=== PATIENT | female | born 1945 | race Caucasian/White ===

== ENCOUNTER → 2016-07-11 | Outpatient (CLI) | payer MEDICARE, BC ==
--- NOTE | 2016-07-12 16:17 | XR ---
EXAMINATION TYPE: XR chest 2V DATE OF EXAM: 07/11/2016 1:30 PM COMPARISON: NONE HISTORY: Cough TECHNIQUE: Frontal and lateral views of the chest are obtained. FINDINGS: There is no focal air space opacity, pleural effusion, or pneumothorax seen. The cardiac silhouette size is borderline enlarged although patient is rotated. Retrocardiac density with central lucency compatible with hiatal hernia. There may be spinal curvature, patient is rotated. There is b ronchial wall thickening. The osseous structures are intact. IMPRESSION: Correlate for bronchitis. Hiatal hernia. Borderline cardiac size.
== END | disposition home or self-care (01) ==
LOC: RADXRYALE 13:20
PROVIDERS: ATTEND Internal Medicine
DX: K44.9 Diaphragmatic hernia without obstruction or gangrene (principal); R05 Cough
CPT/HCPCS: 71020

== ENCOUNTER → 2016-11-08 | Outpatient (CLI) | payer MEDICARE, BC ==
--- NOTE | 2016-11-09 14:22 | MM ---
Reason for exam: screening (asymptomatic). Last mammogram was performed 1 year and 1 month ago. History: Patient is postmenopausal. Family history of breast cancer in sister at age 40 and breast cancer in mother at age 50. Benign stereotactic core biopsy of the left breast, February 08, 2004. Physical Findings: A clinical breast exam by your physician is recommended on an annual basis and results should be correlated with mammographic findings. MG 3D Screening Mammo W/Cad Bilateral CC and MLO view(s) were taken. Prior study comparison: October 20, 2015, bilateral MG 3d screening mammo w/cad. October 12, 2014, bilateral MG screening mammo w CAD. April 07, 2014, left breast MG diagnostic mammo LT w CAD. There are scattered fibroglandular densities. There is chronic nodularity bilaterally. No significant changes when compared with prior studies. ASSESSMENT: Benign, BI-RAD 2 RECOMMENDATION: Routine screening mammogram of both breasts in 1 year.
== END | disposition home or self-care (01) ==
LOC: RADMAMWWP 07:59
PROVIDERS: ATTEND Internal Medicine
DX: Z12.31 Encounter for screening mammogram for malignant neoplasm of breast (principal)
CPT/HCPCS: 77063; G0202

== ENCOUNTER → 2017-12-18 | Outpatient (CLI) | payer MEDICARE, BC ==
--- NOTE | 2017-12-20 11:53 | MM ---
Reason for exam: screening (asymptomatic). Last mammogram was performed 1 year and 1 month ago. History: Patient is postmenopausal. Family history of breast cancer in sister at age 40 and breast cancer in mother at age 50. Benign stereotactic core biopsy of the left breast, February 08, 2004. Physical Findings: A clinical breast exam by your physician is recommended on an annual basis and results should be correlated with mammographic findings. MG 3D Screening Mammo W/Cad Bilateral CC and MLO view(s) were taken. Prior study comparison: November 08, 2016, bilateral MG 3d screening mammo w/cad. October 20, 2015, bilateral MG 3d screening mammo w/cad. There are scattered fibroglandular densities. Benign appearing round bilateral calcifications. Previous mammotome biopsy in the left breast. There is no discrete abnormality. ASSESSMENT: Benign, BI-RAD 2 RECOMMENDATION: Routine screening mammogram of both breasts in 1 year.
== END | disposition home or self-care (01) ==
LOC: RADMAMWWP 15:21
PROVIDERS: ATTEND Internal Medicine
DX: Z12.31 Encounter for screening mammogram for malignant neoplasm of breast (principal)
CPT/HCPCS: 77063; 77067

== ENCOUNTER → 2018-09-06 | Outpatient (CLI) | payer MEDICARE, BC ==
--- NOTE | 2018-09-06 15:26 | US ---
EXAMINATION TYPE: US abdomen complete DATE OF EXAM: 09/06/2018 COMPARISON: NONE CLINICAL HISTORY: R10.11 Right upper quadrant abdominal pain. Gassy, bloating x 1 month, occasional b ack pain. EXAM MEASUREMENTS: Liver Length: 17.0 cm Gallbladder Wall: 0.3 cm CBD: 0.4 cm Spleen: cm Right Kidney: 9.4 x 4.5 x 4.5 cm Left Kidney: 9.1 x 5.3 x 4.8 cm Difficult and limited study due to patient body habitus and overlying bowel gas Pancreas: obscured by overlying midline bowel gas Liver: wnl Gallbladder: mobile echogenic foci Evidence for sonographic Ordoñez's sign: no CBD: visualized portions wnl, limited by overlying bowel gas Spleen: obscured by overlying bowel gas Right Kidney: wnl Left Kidney: wnl Upper IVC: wnl Abd Aorta: visualized portions wnl, limited by overlying midline bowel gas IMPRESSION: 1. There is some limitation due to bowel gas this examination. 2. Cholelithiasis.
== END ==
LOC: RADUSWWP 08:01
PROVIDERS: ATTEND Internal Medicine
DX: K80.20 Calculus of gallbladder without cholecystitis without obstruction (principal)
CPT/HCPCS: 76700

== ENCOUNTER → 2019-01-13 | Outpatient (CLI) | payer MEDICARE, BC ==
--- NOTE | 2019-01-15 09:01 | MM ---
Reason for exam: screening (asymptomatic). Last mammogram was performed 1 year and 1 month ago. History: Patient is postmenopausal. Family history of breast cancer in sister at age 40 and breast cancer in mother at age 50. Benign stereotactic core biopsy of the left breast, February 08, 2004. Physical Findings: A clinical breast exam by your physician is recommended on an annual basis and results should be correlated with mammographic findings. MG 3D Screening Mammo W/Cad Bilateral CC and MLO view(s) were taken. Prior study comparison: December 18, 2017, bilateral MG 3d screening mammo w/cad. November 08, 2016, bilateral MG 3d screening mammo w/cad. There are scattered fibroglandular densities. Previous mammotome biopsy in the left breast. There is chronic nodularity bilaterally. No significant changes when compared with prior studies. ASSESSMENT: Benign, BI-RAD 2 RECOMMENDATION: Routine screening mammogram of both breasts in 1 year.
== END | disposition home or self-care (01) ==
LOC: RADMAMWWP 12:56
PROVIDERS: ATTEND Internal Medicine
DX: Z12.31 Encounter for screening mammogram for malignant neoplasm of breast (principal)
CPT/HCPCS: 77063; 77067

== ENCOUNTER 2019-06-15 19:32 | Inpatient (IN) | payer MEDICARE, OTHER ==
[2019-06-15] MEDS ORDERED: CEPHALEXIN 500 MG CAP PO STA (19:35)
[2019-06-15] MEDS ORDERED: HYDROcodone/APAP 5-325MG 1 EACH TAB PO STA (19:35)
[2019-06-15] MEDS ORDERED: LIDOCAINE 1%-EPI 1:100,000 20 ML VIAL SQ STA (19:50)
--- NOTE | 2019-06-15 20:15 | XR ---
EXAMINATION TYPE: XR tibia fibula RT DATE OF EXAM: 06/15/2019 CLINICAL HISTORY: Laceration TECHNIQUE: Two views of the right leg are obtained. COMPARISON: None. FINDINGS: No fracture. Total knee arthroplasty is noted. There are degenerative changes throughout the foot whi ch are incompletely evaluated. Soft tissue defect along the medial aspect of the left lower leg. No radiopaque foreign body. No unde rlying osseous abnormality. Arterial vascular calcifications. IMPRESSION: 1. No fracture. 2. Laceration along the medial lower leg without radiopaque foreign body.
[2019-06-15] MEDS ORDERED: DIPH,PERTUS(ACELL)TETVAC-LF 0.5 ML VIAL IM ONE (20:44)
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
[2019-06-15 21:48] LABS: Basophils # (A) 0.1 k/uL (0-0.2); Basophils % (A) 0 %; Eosinophils # (A) 0.1 k/uL (0-0.7); Eosinophils % (A) 1 %; HCT 44.2 % (34.0-46.0); HGB 14.5 gm/dL (11.4-16.0); Lymphocytes % (A) 6 %; MCHC 32.8 g/dL (31.0-37.0); MCV 85.6 fL (80.0-100.0); Mean Platelet Volume 7.8; Monocytes # (A) 0.5 k/uL (0-1.0); Monocytes % (A) 3 %; Neutrophils # (A) 14.3 k/uL (1.3-7.7); Neutrophils % (A) 89 %; Platelet Count 365 k/uL (150-450); RBC 5.16 m/uL (3.80-5.40); RDW 13.5 % (11.5-15.5)
[2019-06-15 21:53] LABS: Calcium 9.2 mg/dL (8.4-10.2); Potassium 4.3 mmol/L (3.5-5.1)
[2019-06-15 21:59] LABS: INR 0.9 (<1.2); Partial Thromboplastin Time 22.5 sec (22.0-30.0); Prothrombin Time 9.6 sec (9.0-12.0)
[2019-06-15] MEDS ORDERED: NALOXONE 0.4 MG/ML 1 ML VIAL IV PRN (22:17)
[2019-06-15] MEDS ORDERED: IBUPROFEN 400 MG TAB PO PRN (22:17)
[2019-06-16] MEDS: ACETAMINOPHEN TAB 325 MG TAB PO PRN ×2 (06:24→13:19)
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
[2019-06-16] MEDS: SODIUM CHLORIDE 0.9% 1,000 ML IV SCH (13:19)
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
--- NOTE | 2019-06-16 17:36 | P.PN ---
Subjective Progress Note Date: 06/16/19 Patient doing well, pain well controlled Objective - Vital Signs Vital signs: Vital Signs Temp 98.6 F 06/16/19 14:57 Pulse 64 06/16/19 16:10 Resp 15 06/16/19 16:10 BP 137/76 06/16/19 14:57 Pulse Ox 97 06/16/19 14:57 Intake & Output 06/15/19 06/16/19 06/16/19 18:59 06:59 18:59 Intake Total 225 Balance 225 Weight 70.307 kg Intake: Intake, IV Titration 225 Amount Sodium Chloride 0.9% 1, 225 000 ml @ 75 mls/hr IV . [id number] [facility] Rx#:[id number] - Constitutional General appearance: Present: cooperative - Cardiovascular Rhythm: regular - Integumentary Integumentary Comment(s): wound vac in place. minimal erythema - Neurologic Neurologic Comment(s): motor and sensation intact, distal pulses palpable - Psychiatric Psychiatric: Present: A&O x's 3 - Labs CBC & Chem 7: 06/15/19 21:14 06/15/19 21:14 Labs: Abnormal Lab Results - Last 24 Hours (Table) 06/15/19 06/15/19 Range/Units 21:14 21:14 WBC 16.0 H (3.8-10.6) k/uL Neutrophils # 14.3 H (1.3-7.7) k/uL BUN 25 H (7-17) mg/dL Glucose 122 H (74-99) mg/dL Assessment and Plan Assessment: Laceration and degloving injury of the right lower extremity Plan: Continue with wound vac and pain control. Social work for home health care setup and wound vac for home per wound care. follow up wound care recs. No plan for acute surgical intervention
[2019-06-17] MEDS: SODIUM CHLORIDE 0.9% 1,000 ML IV SCH ×2 (04:24→22:22)
[2019-06-17] MEDS: ACETAMINOPHEN TAB 325 MG TAB PO PRN ×2 (04:33→18:23)
--- NOTE | 2019-06-17 15:51 | P.PN ---
Subjective No overnight events patient is clinically doing well plan is to discharge her today with a wound VAC. Patient is presently not on any antibiotics there is no real indication for antibiotics either Constitutional: Denied any fatigue denied any fever. Cardio vascular: denied any chest pain, palpitations Gastrointestinal denied any nausea vomiting Pulmonary: Denied any shortness of breath cough Neurologic denied any new focal deficits All inpatient medications were reviewed and appropriate changes in these medications as dictated in the interval history and assessment and plan. Objective - Vital Signs Vital signs: Vital Signs Temp 98.5 F 06/17/19 07:00 Pulse 71 06/17/19 07:05 Resp 15 06/17/19 07:05 BP 119/66 06/17/19 07:00 Pulse Ox 93 L 06/17/19 07:00 Intake & Output 06/16/19 06/17/19 06/17/19 18:59 06:59 18:59 Intake Total 405 262.5 Balance 405 262.5 Intake: Intake, IV Titration 225 262.5 Amount Sodium Chloride 0.9% 1, 225 262.5 000 ml @ 75 mls/hr IV . [id number] [facility] Rx#:[id number] Oral 180 Other: Voiding Method Toilet Toilet # Voids 1 1 - Exam PHYSICAL EXAMINATION: GENERAL: The patient is alert and oriented x3, not in any acute distress. Well developed, well nourished. HEENT: Pupils are round and equally reacting to light. EOMI. No scleral icterus. No conjunctival pallor. Normocephalic, atraumatic. No pharyngeal erythema. No th yromegaly. CARDIOVASCULAR: S1 and S2 present. No murmurs, rubs, or gallops. PULMONARY: Chest is clear to auscultation, no wheezing or crackles. ABDOMEN: Soft, nontender, nondistended, normoactive bowel sounds. No palpable organomegaly. MUSCULOSKELETAL: No joint swelling or deformity. EXTREMITIES: No cyanosis, clubbing, or pedal edema. Right leg has a wound VAC in place NEUROLOGICAL: Gross neurological examination did not reveal any focal deficits. SKIN: No rashes. - Labs CBC & Chem 7: 06/15/19 21:14 06/15/19 21:14 Assessment and Plan Plan: -Leukocytosis: Seconded to the right leg and due to fascia: Patient had a wound VAC is being discharged today not on any antibiotics and may not be necessary. Patient doesn't have any other medical problems will continue to follow the patient on as-needed basis
--- NOTE | 2019-06-17 16:33 | P.PN ---
Subjective Progress Note Date: 06/17/19 Patient doing well, pain well controlled Objective - Vital Signs Vital signs: Vital Signs Temp 98.5 F 06/17/19 07:00 Pulse 71 06/17/19 07:05 Resp 15 06/17/19 07:05 BP 119/66 06/17/19 07:00 Pulse Ox 93 L 06/17/19 07:00 Intake & Output 06/16/19 06/17/19 06/17/19 18:59 06:59 18:59 Intake Total 405 262.5 Balance 405 262.5 Intake: Intake, IV Titration 225 262.5 Amount Sodium Chloride 0.9% 1, 225 262.5 000 ml @ 75 mls/hr IV . [id number] [facility] Rx#:[id number] Oral 180 Other: Voiding Method Toilet Toilet # Voids 1 1 - Constitutional General appearance: Present: cooperative - Respiratory Details: nonlabored - Cardiovascular Rhythm: regular - Integumentary Integumentary Comment(s): Wound vac in place, minimal cellulitis - Psychiatric Psychiatric: Present: A&O x's 3 - Labs CBC & Chem 7: 06/15/19 21:14 06/15/19 21:14 Assessment and Plan Assessment: Laceration and degloving injury of the right lower extremity Plan: Continue with wound vac and pain control. Social work for home health care setup and wound vac for home per wound care. follow up wound care recs. No plan for acute surgical intervention
[2019-06-18] MEDS: SODIUM CHLORIDE 0.9% 1,000 ML IV SCH (05:59)
[2019-06-18] MEDS: ACETAMINOPHEN TAB 325 MG TAB PO PRN (07:23)
[2019-06-18 07:42] VITALS: RESP 16; TEMP 98.2
--- NOTE | 2019-06-18 12:27 | P.PN ---
Subjective No overnight events patient is clinically doing well plan is to discharge her today with a wound VAC. Patient is presently not on any antibiotics there is no real indication for antibiotics either. 06/18/2019 Patient is awaiting authorization from insurance her home care. No overnight events patient is clinically doing well. Discussed with the general surgery because of the severity of laceration they believe patient will need to be on antibiotics patient will be discharged on Keflex. Constitutional: Denied any fatigue denied any fever. Cardio vascular: denied any chest pain, palpitations Gastrointestinal denied any nausea vomiting Pulmonary: Denied any shortness of breath cough Neurologic denied any new focal deficits All inpatient medications were reviewed and appropriate changes in these medications as dictated in the interval history and assessment and plan. Objective - Vital Signs Vital signs: Vital Signs Temp 98.2 F 06/18/19 07:00 Pulse 73 06/18/19 07:00 Resp 16 06/18/19 07:00 BP 132/72 06/18/19 07:00 Pulse Ox 93 L 06/18/19 07:00 Intake & Output 06/17/19 06/18/19 06/18/19 18:59 06:59 18:59 Intake Total 50 Balance 50 Intake: Intake, IV Titration 50 Amount ceFAZolin 1,000 mg In 50 Sodium Chloride 0.9% 50 ml @ 100 mls/hr IVPB Q8HR [facility] Rx#:[id number] Other: Voiding Method Toilet Toilet Toilet # Voids 2 2 - Exam PHYSICAL EXAMINATION: GENERAL: The patient is alert and oriented x3, not in any acute distress. Well developed, well nourished. HEENT: Pupils are round and equally reacting to light. EOMI. No scleral icterus. No conjunctival pallor. Normocephalic, atraumatic. No pharyngeal erythema. No thyromegaly. CARDIOVASCULAR: S1 and S2 present. No murmurs, rubs, or gallops. PULMONARY: Chest is clear to auscultation, no wheezing or crackles. ABDOMEN: Soft, nontender, nondistended, normoactive bowel sounds. No palpable organomegaly. MUSCULOSKELETAL: No joint swelling or deformity. EXTREMITIES: No cyanosis, clubbing, or pedal edema. Right leg has a wound VAC in place NEUROLOGICAL: Gross neurological examination did not reveal any focal deficits. SKIN: No rashes. - Labs CBC & Chem 7: 06/15/19 21:14 06/15/19 21:14 Assessment and Plan Plan: -Leukocytosis: Seconded to the right leg laceration and degloving injury Patient had a wound VAC is being discharged today on Keflex and wound VAC Patient doesn't have any other medical problems and can be discharged from medical perspective
[2019-06-18 15:10] VITALS: BP 149/80; PULSE 81
--- NOTE | 2019-06-18 15:22 | P.PN ---
Subjective Progress Note Date: 06/18/19 Patient doing well, pain well controlled Objective - Vital Signs Vital signs: Vital Signs Temp 98.2 F 06/18/19 15:00 Pulse 81 06/18/19 15:00 Resp 16 06/18/19 15:00 BP 149/80 06/18/19 15:00 Pulse Ox 96 06/18/19 15:00 Intake & Output 06/17/19 06/18/19 06/18/19 18:59 06:59 18:59 Intake Total 50 Balance 50 Intake: Intake, IV Titration 50 Amount ceFAZolin 1,000 mg In 50 Sodium Chloride 0.9% 50 ml @ 100 mls/hr IVPB Q8HR [facility] Rx#:[id number] Other: Voiding Method Toilet Toilet Toilet # Voids 2 2 - Constitutional General appearance: Present: cooperative - Respiratory Details: nonlabored - Cardiovascular Rhythm: regular - Gastrointestinal Gastrointestinal Comment(s): s/nt/nd - Integumentary Integumentary Comment(s): Vac in place. - Labs CBC & Chem 7: 06/15/19 21:14 06/15/19 21:14 Assessment and Plan Assessment: Laceration and degloving injury of the right lower extremity Plan: Continue with wound vac and pain control. Social work for home health care setup and wound vac for home per wound care. follow up wound care recs. No plan for acute surgical intervention
== END 2019-06-18 17:33 | disposition home health service (06) | DRG 605 ==
LOC: EC 19:32 → 4MS4W 22:17 → 4SSUR 06-16 09:17
PROVIDERS: ADMIT Student in an Organized Health Care Education/Training Program; ATTEND Student in an Organized Health Care Education/Training Program
PROC: 2W1LX6Z Compression of Right Lower Extremity using Pressure Dressing (ICD-10-PCS; principal; 2019-06-15)
DX: S81.811A Laceration without foreign body, right lower leg, initial encounter (principal); V48.4XXA Person boarding or alighting a car injured in noncollision transport accident, initial encounter; Y92.410 Unspecified street and highway as the place of occurrence of the external cause; D72.829 Elevated white blood cell count, unspecified; Z96.612 Presence of left artificial shoulder joint; Z96.653 Presence of artificial knee joint, bilateral; Z88.5 Allergy status to narcotic agent; S81.801A Unspecified open wound, right lower leg, initial encounter
CPT/HCPCS: 36415; 80048; 85025; 85610; 85730; 86850; 86900; 86901; 90471; 90715; 93923; 96372; 99285

== ENCOUNTER → 2020-02-12 | Outpatient (CLI) | payer MEDICARE ==
--- NOTE | 2020-02-12 10:33 | XR ---
EXAMINATION TYPE: XR hand complete RT DATE OF EXAM: 02/12/2020 COMPARISON: NONE HISTORY: Pain right fourth digit TECHNIQUE: Three views are submitted. FINDINGS: There is diffuse osteopenia. There is diffuse arthropathy of all joint spaces of the digits. Hypertro phic arthropathy favored. IMPRESSION: 1. No definite acute fracture or dislocation if symptoms persist, follow-up study in 7 to 10 days wo uld be suggested. 2. Diffuse arthropathy
== END | disposition home or self-care (01) ==
LOC: RADXRYALE 09:45
PROVIDERS: ATTEND Internal Medicine
DX: M12.841 Other specific arthropathies, not elsewhere classified, right hand (principal)

== ENCOUNTER → 2020-04-01 | Outpatient (CLI) | payer MEDICARE ==
--- NOTE | 2020-04-05 08:19 | MM ---
Reason for exam: screening (asymptomatic). Last mammogram was performed 1 year and 3 months ago. History: Patient is postmenopausal. Family history of breast cancer in sister at age 40 and breast cancer in mother at age 50. Benign stereotactic core biopsy of the left breast, February 08, 2004. Physical Findings: A clinical breast exam by your physician is recommended on an annual basis and results should be correlated with mammographic findings. MG 3D Screening Mammo W/Cad Bilateral CC and MLO view(s) were taken. Prior study comparison: January 13, 2019, bilateral MG 3d screening mammo w/cad. December 18, 2017, bilateral MG 3d screening mammo w/cad. There are scattered fibroglandular densities. Previous mammotome biopsy in the left breast. No significant changes when compared with prior studies. ASSESSMENT: Benign, BI-RAD 2 RECOMMENDATION: Routine screening mammogram of both breasts in 1 year.
== END | disposition home or self-care (01) ==
LOC: RADMAMWWP 11:46
PROVIDERS: ATTEND Internal Medicine
DX: Z12.31 Encounter for screening mammogram for malignant neoplasm of breast (principal)
CPT/HCPCS: 77063; 77067

== ENCOUNTER → 2021-04-13 | Outpatient (CLI) | payer MEDICARE ==
--- NOTE | 2021-04-14 09:56 | MM ---
Reason for exam: screening (asymptomatic). Last mammogram was performed 1 year ago. History: Patient is postmenopausal. Family history of breast cancer in sister at age 40 and breast cancer in mother at age 50. Benign stereotactic core biopsy of the left breast, February 08, 2004. Physical Findings: A clinical breast exam by your physician is recommended on an annual basis and results should be correlated with mammographic findings. MG 3D Screening Mammo W/Cad Bilateral CC and MLO view(s) were taken. Prior study comparison: April 01, 2020, bilateral MG 3d screening mammo w/cad. January 13, 2019, bilateral MG 3d screening mammo w/cad. December 18, 2017, bilateral MG 3d screening mammo w/cad. There are scattered fibroglandular densities. There are benign appearing round calcifications bilaterally. Previous mammotome biopsy in the left breast. There is chronic nodularity bilaterally. There is no dominant lesion. Benign bilateral axillary lymph nodes redemonstrated. ASSESSMENT: Benign, BI-RAD 2 RECOMMENDATION: Routine screening mammogram of both breasts in 1 year.
== END | disposition home or self-care (01) ==
LOC: RADMAMWWP 09:50
PROVIDERS: ATTEND Internal Medicine
DX: Z12.31 Encounter for screening mammogram for malignant neoplasm of breast (principal); Z80.3 Family history of malignant neoplasm of breast
CPT/HCPCS: 77063; 77067

== ENCOUNTER → 2022-04-18 | Outpatient (CLI) | payer MEDICARE ==
--- NOTE | 2022-04-19 20:01 | MM ---
Reason for Exam: Screening (asymptomatic). Last screening mammogram was performed 12 month(s) ago. Patient History: Menarche at age 10. First Full-Term at age 20. Postmenopausal. 02/08/2004, Benign Stereotactic Core Biopsy on the left side. Sister had breast cancer, age 40. Mother had breast cancer, age 50. Risk Values: Minerva 5 year model risk: 8.0%. NCI Lifetime model risk: 13.0%. Prior Study Comparison: 01/13/2019 Bilateral Screening Mammogram, [facility]. 04/01/2020 Bilateral Screening Mammogram, [facility]. 04/13/2021 Bilateral Screening Mammogram, [facility]. Tissue Density: There are scattered fibroglandular densities. Findings: Analyzed By CAD. Microclip left breast from prior biopsy. Unchanged nonenlarged axillary tail lymph nodes on the right and a small far posteriorly and laterally on the right, also medially on the left. No significant change from prior exams. Overall Assessment: Benign, BI-RAD 2 Management: Screening Mammogram of both breasts in 1 year. Note that per NCCN guidelines, a five-year risk assessment greater than 1.67% is used to assess eligibility for a risk reducing agent. Patient should continue monthly self breast exams. This exam should not preclude additional follow-up of suspicious palpable abnormalities. Electronically signed and approved by: Lida March M.D. Radiologist
== END | disposition home or self-care (01) ==
LOC: RADMAMWWP 12:54
PROVIDERS: ATTEND Internal Medicine
DX: Z12.31 Encounter for screening mammogram for malignant neoplasm of breast (principal); Z78.0 Asymptomatic menopausal state; Z80.3 Family history of malignant neoplasm of breast
CPT/HCPCS: 77063; 77067

== ENCOUNTER → 2022-08-10 | Outpatient (CLI) | payer MEDICARE ==
[2022-08-10 13:36] VITALS: BP 168/91; PULSE 68; RESP 18; TEMP 97.8
--- NOTE | 2022-08-10 15:03 | P.PAINPG ---
PQRS Measure Charge Sheet Comment: HISTORY OF PRESENT ILLNESS: 77 yr old female as a referral from Dr Anderson Metcalf presents today w severe and chronic LBP x 1 yr secondary to BL Sacroiliitis for evaluation. Pt states pain level is at 8 /10 in intensity, constant, localized in the lower lumbar spine, L>R, achy in character w shooting pain towards the LLE. Pain is provoked by sitting for periods of 15 min or more. Pain is alleviated by PT in 2021, heat, meds (Ibu), repositioning and rest. PMH: OA, GERD PSH: BL Knee Replacement, L Shoulder Replacement SH: Never smoker, No ETOH abuse, No illicit drug use FH: Mo- CA. Sister- CA. All: See list Meds: See list REVIEW OF ORGAN SYSTEMS: CONSTITUTIONAL: No fevers or chills. No recent weight loss. NEUROLOGICAL: + numbness and tingling along the distal extremities. No seizure disorders or headaches. MUSCULOSKELETAL: + pain PSYCHIATRIC: Denies current depression or suicidal thoughts. Physical Examinations : Constitutional : Cooperative , not in acute distress . Neurologic : Cranial nerve II to XII intact. No focal ne urological deficits. Psychiatric : alert & oriented x 3. Matching mood & appropriate affect. Judgment & insight intact. Musculoskeletal : Cervical Spine Motor strength in the deltoid and biceps: Normal right side. Normal Left side Motor strength biceps and the wrist extensors: Normal right side . Normal left side Motor strength in the triceps muscle: Normal right side. Normal left side Deep tendon reflexes: Normal at the biceps. Normal at Brachioradialis. Normal at triceps Vertebral body tenderness to deep pa lpation over Cervical facet loading test: positive bilaterally Spurling test: positive bilaterally Neck distraction test: positive bilaterally Red sign: positive bilaterally Lumbar spine Motor strength lower extremities ,thigh and legs 5/5 Right side , 5/5 Left side Deep tendon reflexes : Normal Knee Jerk. Normal Ankle Jerk Vertebral body tenderness over Lumbar facet Loading Test: positive Right / positive Left Range of motion of the lumbar spine Flexion 30 degrees, extension 10 degrees Straight Leg Raise test: Left/ Right positive at degree Emile test: positive right / positive left. Severe tenderness over the Sacroiliac joint on the Right / Left sides Gaenslen test: positive bilaterally Seated flexion test: positive bilaterally. Sacral spine : Severe tenderness over the Sacroiliac joint: right side / left side Range of motion: Flexion of the lumbar spine <60 degrees Range of motion: Extension of the lumbar spine <20 degrees Gaenslen's Test positive BL Emile test: positive right side / left side BL Thigh Thrust Test positive + Sacral Thrust Test BL Imaging: MRI without contrast of the lumbar spine from 08/06/21 reviewed Assessment/ Plan : BL Sacroiliitis Recommendation of BL SI injections. May need a series for optimal pain relief. Risks, benefits of procedure discussed and patient verbalized understanding. Admits to aspirin or anti- coagulant use or medical history of diabetes. Protocol for discontinuation/ continuation of medications mike procedure discussed. All questions answered. I have spent greater than 30 minutes on patient care today. Dr Corrales was available by phone for the evaluation of this patient. The time was used to review the medical records including relevant urine studies and Prescription history (MAPs), review of the available imaging, evaluation and examination of the patient, coordination of care with the medical staff and if applicable referring physicians, as well as creation of the medical record - Pain Location Bilateral Lower Back Non-Pharmacological Interventions: Heat, Physical Therapy, Stretching Pharmacological Interventions: PRN Medication PQRS Narrative: Smoking Status Never smoker Home Medications: Ambulatory Orders Multivitamins, Thera [Multivitamin (formulary)] 1 tab PO DAILY 06/16/19 Vits A,C,E/Lutein/Minerals [Ocuvite with Lutein Tablet] 1 tab PO DAILY 06/16/19 Cephalexin [Keflex] 500 mg PO Q12HR 5 Days #10 cap 06/17/19 Controlled Substance Measures - Controlled Substance Measures Is patient prescribed a controlled substance at discharge?: No
== END ==
LOC: PNWHC3 12:39
PROVIDERS: ATTEND Specialist
DX: M51.26 Other intervertebral disc displacement, lumbar region (principal); M46.94 Unspecified inflammatory spondylopathy, thoracic region; M46.1 Sacroiliitis, not elsewhere classified; M19.90 Unspecified osteoarthritis, unspecified site; K21.9 Gastro-esophageal reflux disease without esophagitis; Z88.5 Allergy status to narcotic agent
CPT/HCPCS: 99211

== ENCOUNTER → 2022-10-05 | Outpatient (CLI) | payer MEDICARE ==
[2022-10-05 13:17] VITALS: BP 181/99; PULSE 62; RESP 18; TEMP 98.3
--- NOTE | 2022-10-05 14:46 | P.PAINPG ---
PQRS Measure Charge Sheet Comment: A 77 yr old female with a history of severe and chronic LBP secondary to lumbar DDD and spondylosis with facet arthropathy without myelopathy presents today for evaluation s/p BL SI injection. Pt states she experienced 80 % pain relief x 2 days s/p procedure. Pain level is provoked at 9 /10 in intensity, co nstant, localized in the lumbar spine, dull/ achy in character w shooting towards the LLE. Pain is provoked by pushing, pulling. Pain is alleviated with PT x 6 wks in 2021, home stretches at home, medications (Ibu), chiropractic treatments in 2020 without relief, heat, repositioning and rest. Interventional pain procedures completed include BL SI injection x1 Patient is currently on Ibu Patient denies any side effects of the medication(s), denies excessive drowsiness or sleepiness, denies suicidal ideation and reports that the current pain medication is helping to control the pain and improve activities of daily living. Patient denies any motor or sensory deficits. Patient denies any fever or night sweats, denies any change in the bowel movements or urination. Physical Examination: -Constitutional: Cooperative. Not in acute distress . - Neurologic: Cranial nerve II to XII intact. No focal neurological deficits. - Psychatric: Alert & oriented x 3. Matching mood & appropriate affect. J udgment and insight intact. - Musculoskeletal: Cervical spine: Muscle bulk/ tone/ strength in the bilateral upper extremities normal Vertebral body tenderness to palpation over Spurling test positive Distraction test positive Facet loading test positive TTP Thoracic spine Muscle bulk / tone/ strength in the bilateral paraspinal muscles normal Vertebral body tender to palpation over Facet loading test positive TTP Lumbar spine: Motor bulk/ tone/ strength lower extremities , thigh and legs : 5/5 Deep tendon reflexes : Normal Knee Jerk. Normal Ankle Jerk . Vertebral body tenderness to palpation over L5, L >R Lumbar Facet Loading Test positive Straight Leg Raise: positive at 30 degrees right side/ left side Gaenslen's Test positive Sacral spine : Severe tenderness over the Sacroiliac joint: right side / left side Range of motion: Flexion of the lumbar spine <60 degrees Range of motion: Extension of the lumbar spine <20 degrees Gaenslen's Test positive right side / left side Emile test: positive right side / left side Thigh Thrust Test positive right side / left side Sacral Thrust Test positive right side / left side Assessment and plan: Chronic LBP secondary to lumbar DDD, spondylosis with facet arthropathy without myelopathy Recommendation of BL TFESI L5-S1 #1. May need a series of injections for optimal pain relief. Risks, benefits of procedure discussed and pt verbalized understanding. Admits to anticoagulant use or medical history of diabetes. Protocol for discontinuation/ continuation of medications mike procedure discussed. All questions answered. I have spent less than 30 minutes on patient care today. Dr Corrales was available by phone for the evaluation of this patient. The time was used to review the medical records including relevant urine studies and Prescription history (MAPs), review of the available imaging, evaluation and examination of the patient, coordination of care with the medical staff and if applicable referring physicians, as well as creation of the medical record PQRS Narrative: Smoking Status Never smoker Hx Alcohol Use (MH) No Home Medications: Ambulatory Orders Ibuprofen [Motrin Ib] 200 mg PO Q8H PRN 09/11/22 Omeprazole 20 mg PO DAILY 09/11/22 Controlled Substance Measures - Controlled Substance Measures Is patient prescribed a controlled substance at discharge?: No
== END ==
LOC: PNWHC3 12:46
PROVIDERS: ATTEND Specialist
DX: M51.36 Other intervertebral disc degeneration, lumbar region (principal); M47.816 Spondylosis without myelopathy or radiculopathy, lumbar region; Z88.5 Allergy status to narcotic agent
CPT/HCPCS: 99211

== ENCOUNTER 2022-10-19 11:46 | Day surgery (SDC) | payer MEDICARE ==
[~2022-10-19 11:46] MED LIST: LACTATED RINGERS 1,000 ML IV SCH; LIDOCAINE 1% (10MG/ML) FOR IV START INTRADERMA PRN
[2022-10-19 12:04] VITALS: TEMP 97.9
[2022-10-19] MEDS ORDERED: methylPREDNISolone ACETATE 40 MG/ML 1 ML VIAL ONE (12:33)
[2022-10-19] MEDS ORDERED: IOPAMIDOL M200 10 ML VIAL ONE (12:33)
[2022-10-19] MEDS ORDERED: IV FLUID CONTINUATION 800 ML IV ONE (12:50)
--- NOTE | 2022-10-19 12:50 | P.PCN ---
Date of Procedure: 10/19/22 Procedure(s) Performed: PREOPERATIVE DIAGNOSIS: 1-Lumbar radiculopathy . 2-lumbar degenerative disc disease. 3-lumbar spondylosis with lumbar facet arthropathy without myelopathy POSTOPERATIVE DIAGNOSIS: 1-lumbar radiculopathy. 2-lumbar degenerative disc disease. 3-lumbar spondylosis with facet arthropathy without myelopathy PROCEDURE 1. Transforaminal epidural steroid injection under fluoroscopic guidance at bilateral L5-S1 level. (Fluoroscopy images stored on file in the radiology Department ) 2. Lumbar epidurogram . ANESTHESIA: Local with 1% lidocaine 5 ml only. EBL: Minimal PROCEDURE INDICATION: The patient with low back pain and radiculopathy symptoms unresponsive to conservative treatment. PROCEDURE DESCRIPTION / TECHNIQUE: The patient was seen and identified in the preoperative area. Risks, benefits, complications, and alternatives were discussed with the patient. The patient agreed to proceed with the procedure and signed the consent. IV was started, and vital signs were stable. Patient was taken to the OR and time out was completed. The patient was placed in the prone position on procedure table and a pillow was placed under the abdomen to reduce lumbar lordosis. The lumbosacral area was prepped and draped in the usual sterile fashion. Critical pause was taken. Vital signs were closely monitored during the procedure. Conscious sedation was used during the procedure to decrease patient s anxiety. Using oblique fluoroscopy, the chin of the ``Mushtaq dog at right L5-S1 level was identified, and the skin and deeper tissues just below was localized with 1% lidocaine. Subsequently, a 22-gauge 3.5-inch spinal needle was advanced under a tunneled view fluoroscopic guidance just underneath the chin of the ``Mushtaq dog at the rightm L5-S1 Under lateral fluoroscopy, the needle was then advanced to the posterior border of the interforaminal space. After negative aspiration of CSF and blood and with no paresthesias, 1 mL Isovue 200 contrast dye was injected excellent epidurogram and outlining of the nerve root Subsequently, 3 mL of block solution containing 20 mg Depo-Medrol and 2 mL of 0.9% normal saline PF was injected. Needle was removed and the same procedure was repeated at the left L5-S1 level . At the end of the procedure, skin was cleansed, and bandages were applied. COMPLICATIONS:none DISPOSITION / PLANS: The patient was placed in a supine position and transferred to the recovery area in a stable condition for observation. There was no evidence of lower extremity motor or sensory deficit after the procedure. Patient was discharged from the recovery room after meeting discharge criteria. Home discharge instructions were given to the patient by the staff. The patient was reexamined prior to discharge.
[2022-10-19 12:54] VITALS: RESP 16
[2022-10-19 13:06] VITALS: BP 155/83; PULSE 63
--- NOTE | 2022-10-19 14:42 | FL ---
EXAMINATION TYPE: FL guided pain mgmt statistic DATE OF EXAM: 10/19/2022 HISTORY: Fluoroscopy time 0.77920AEP fluoroscopy provided. IMPRESSION: 1. Fluoroscopy time.
== END 2022-10-19 13:16 | disposition home or self-care (01) ==
LOC: ORPAIN 11:46
PROVIDERS: ATTEND Specialist
DX: M51.16 Intervertebral disc disorders with radiculopathy, lumbar region (principal); M47.26 Other spondylosis with radiculopathy, lumbar region; Z88.5 Allergy status to narcotic agent
CPT/HCPCS: 64483; J1030; Q9966

== ENCOUNTER → 2022-11-09 | Outpatient (CLI) | payer MEDICARE ==
[2022-11-09 13:06] VITALS: BP 175/81; PULSE 69; RESP 16; TEMP 98.3
--- NOTE | 2022-11-09 14:59 | P.PAINPG ---
PQRS Measure Charge Sheet Comment: A 77 yr old female with a history of severe and chronic LBP secondary to lumbar DDD and spondylosis with facet arthropathy without myelopathy presents today for evaluation s/p BL TFESI L5-S1. Pt states she experienced 20 % pain relief x 3 wks s/p procedure. Pt also recalls undergoing a BL RFA L4-L5, L5-S1 at Dr Pickett's office in 2021 where she experienced 60% pain relief x 4 mo s/p procedure. Pain level is provoked at 7/10 in intensity, constant, localized in the lumbar spine, sharp in character w shooting towards the LLE. Pain is provoked by standing/ walking for periods of 10 min or more. Pain is alleviated with medications, topical, heat, ice, massage therapy years ago, repositioning and rest. Interventional pain procedures completed include BL TFESI L5-S1 Patient is currently on Ibu Patient denies any side effects of the medication(s), denies excessive drowsiness or sleepiness, denies suicidal ideation and reports that the current pain medication is helping to control the pain and improve activities of daily living. Patient denies any motor or sensory deficits. Patient denies any fever or night sweats, denies any change in the bowel movements or urination. Physical Examination: -Constitutional: Cooperative. Not in acute distress . - Neurologic: Cranial nerve II to XII intact. No focal neurological deficits. - Psychatric: Alert & oriented x 3. Matching mood & appropriate affect. Judgment and insight intact. - Musculoskeletal: Cervical spine: Muscle bulk/ tone/ strength in the bilateral upper extremities normal Vertebral body tenderness to palpation over Spurling test positive Distraction test positive Facet loading test positive TTP Thoracic spine Muscle bulk / tone/ strength in the bilateral paraspinal muscles normal Vertebral body tender to palpation over Facet loading test positive TTP Lumbar spine: Motor bulk/ tone/ strength lower extremities , thigh and legs : 5/5 Deep tendon reflexes : Normal Knee Jerk. Normal Ankle Jerk . Vertebral body tenderness to palpation over Lumbar Facet Loading Test positive at BL L4-L5, L5-S1 facets Straight Leg Raise: positive at 30 degrees right side/ left side Gaenslen's Test positive Sacral spine : Severe tenderness over the Sacroiliac joint: right side / left side Range of motion: Flexion of the lumbar spine <60 degrees Range of motion: Extension of the lumbar spine <20 degrees Gaenslen's Test positive right side / left side Emile test: positive right side / left side Thigh Thrust Test positive right side / left side Sacral Thrust Test positive right side / left side Assessment and plan: Chronic LBP secondary to lumbar DDD, spondylosis with facet arthropathy without myelopathy Recommendation of BL RFA L4-L5, L5-S1. Pt exhibited substantial pain relief w prior RFA procedure at Dr Pickett's office. Risks, benefits of procedure discussed and pt verbalized understanding. Admits to anticoagulant use or medical history of diabetes. Protocol for discontinuation/ continuation of medications mike procedure discussed. All questions answered. I have spent less than 30 minutes on patient care today. Dr Corrales was av ailable by phone for the evaluation of this patient. The time was used to review the medical records including relevant urine studies and Prescription history (MAPs), review of the available imaging, evaluation and examination of the patient, coordination of care with the medical staff and if applicable referring physicians, as well as creation of the medical record PQRS Narrative: Smoking Status Never smoker Hx Alcohol Use (MH) No Home Medications: Ambulatory Orders Ibuprofen [Motrin Ib] 200 mg PO Q8H PRN 09/11/22 Omeprazole 20 mg PO DAILY 09/11/22 Fexofenadine HCl [Mayi Allergy] 180 mg PO DAILY 10/16/22 Controlled Substance Measures - Controlled Substance Measures Is patient prescribed a controlled substance at discharge?: No
== END ==
LOC: PNWHC3 12:33
PROVIDERS: ATTEND Specialist
DX: M51.36 Other intervertebral disc degeneration, lumbar region (principal); M47.816 Spondylosis without myelopathy or radiculopathy, lumbar region; G89.29 Other chronic pain; Z88.5 Allergy status to narcotic agent
CPT/HCPCS: 99211

== ENCOUNTER → 2023-01-15 | Outpatient (CLI) | payer MEDICARE ==
[2023-01-15 11:30] VITALS: BP 142/90; PULSE 63; RESP 16; TEMP 98
--- NOTE | 2023-01-15 14:31 | P.PAINPG ---
PQRS Measure Charge Sheet Comment: A 77 yr old female with a history of severe and chronic LBP secondary to lumbar DDD and spondylosis with facet arthropathy without myelopathy presents today for evaluation s/p BL TFESI L5-S1. Pt states she experienced 20 % pain relief x 3 wks s/p procedure. Pt also recalls undergoing a BL RFA L4-L5, L5-S1 at Dr Pickett's office in 2021 where she experienced 60% pain relief x 4 mo s/p procedure. Pain level is provoked at 7/10 in intensity, constant, localized in the lumbar spine, sharp in character w shooting towards the LLE. Pain is provoked by standing/ walking for periods of 10 min or more. Pain is alleviated with medications, topical, heat, ice, massage therapy years ago, chiropractic treatments x 3-4 wks in 2020, physician guided exercises 2-4 times weekly since 2020, repositioning and rest. Oswestry pain score of 11. Interventional pain procedures completed include BL TFESI L5-S1, BL RFA L3-L5 Patient is currently on Ibu Patient denies any side effects of the medication(s), denies excessive drowsiness or sleepiness, denies suicidal ideation and reports that the current pain medication is helping to control the pain and improve activities of daily living. Patient denies any motor or sensory deficits. Patient denies any fever or night sweats, denies any change in the bowel movements or urination. Physical Examination: -Constitutional: Cooperative. Not in acute distress . - Neurologic: Cranial nerve II to XII intact. No focal neurological deficits. - Psychatric: Alert & oriented x 3. Matching mood & appropriate affect. Judgment and insight intact. - Musculoskeletal: Cervical spine: Muscle bulk/ tone/ strength in the bilateral upper extremities normal Vertebral body tenderness to palpation over Spurling test positive Distraction test positive Facet loading test positive TTP Thoracic spine Muscle bulk / tone/ strength in the bilateral paraspinal muscles normal Vertebral body tender to palpation over Facet loading test positive TTP Lumbar spine: Motor bulk/ tone/ strength lower extremities , thigh and legs : 5/5 Deep tendon reflexes : Normal Knee Jerk. Normal Ankle Jerk . Vertebral body tenderness to palpation over Lumbar Facet Loading Test positive at BL L4-L5, L5-S1 facets Straight Leg Raise: positive at 30 degrees right side/ left side Gaenslen's Test positive Sacral spine : Severe tenderness over the Sacroiliac joint: right side / left side Range of motion: Flexion of the lumbar spine <60 degrees Range of motion: Extension of the lumbar spine <20 degrees Gaenslen's Test positive right side / left side Emile test: positive right side / left side Thigh Thrust Test positive right side / left side Sacral Thrust Test positive right side / left side Assessment and plan: Chronic LBP secondary to lumbar DDD, spondylosis with facet arthropathy without myelopathy Recommendation of PT x 6 wks re: M51.36. May return to clinic for re evaluation. All questions answered. I have spent less than 30 minutes on patient care today. Dr Corrales was available by phone for the evaluation of this patient. The time was used to review the medical records including relevant urine studies and Prescription history (MAPs), review of the available imaging, evaluation and examination of the patient, coordination of care with the medical staff and if applicable referring physicians, as well as creation of the medical record PQRS Narrative: Smoking Status Never smoker Hx Alcohol Use (MH) No Home Medications: Ambulatory Orders Ibuprofen [Motrin Ib] 200 mg PO Q8H PRN 09/11/22 Omeprazole 20 mg PO DAILY 09/11/22 Fexofenadine HCl [Mayi Allergy] 180 mg PO DAILY 10/16/22 Controlled Substance Measures - Controlled Substance Measures Is patient prescribed a controlled substance at discharge?: No
== END ==
LOC: PNWHC3 11:02
PROVIDERS: ATTEND Specialist
DX: M51.37 Other intervertebral disc degeneration, lumbosacral region (principal); M47.817 Spondylosis without myelopathy or radiculopathy, lumbosacral region; G89.29 Other chronic pain; M53.3 Sacrococcygeal disorders, not elsewhere classified; Z88.5 Allergy status to narcotic agent
CPT/HCPCS: 99211

== ENCOUNTER → 2023-03-30 | Outpatient (CLI) | payer MEDICARE ==
--- NOTE | 2023-03-30 09:17 | US ---
EXAMINATION TYPE: US pelvis complete transvag DATE OF EXAM: 03/30/2023 COMPARISON: NONE CLINICAL INDICATION: Female, 78 years old with history of N95.0 POSTMENOPAUSAL BLEEDING; Spotting. TECHNIQUE: Transvaginal (TV) and Transabdominal (TA) . Transabdominal sonographic images of the pel vis were acquired. Date of LMP: BACK JOINER, EXAM MEASUREMENTS: Uterus: 5.9 x 4.7 x 3.2 cm Endometrial Stripe: 0.8 cm 1. Uterus: Anteverted Small, heterogenous. 2. Endometrium: Fluid seen in endometrial cavity. Possible lesion seen within cavity = 2.3 x 2.6 x 2.5 cm 3. Right Ovary: See adnexa notes 4. Left Ovary: Obscured by overlying bowel gas 5. Bilateral Adnexa: Right complex lesion seen, unknown origin but could be ovary = 11.1 x 8.6 x 7.5 cm 6. Posterior cul-de-sac: no free fluid IMPRESSION: 1. Dilated endometrial cavity with irregularity along the endometrial lining and echogenic focus moustapha uring 2.3 x 2.6 x 2.5 cm. This is a markedly abnormal appearance in a postmenopausal patient carcinom a must be excluded. [employer] consult is recommended for endometrial biopsy. 2. Large complex appearing mass within the right adnexa/ovary would raise the possibility of an ovari an malignancy. Further workup with CT or MRI is recommended.
== END | disposition home or self-care (01) ==
LOC: RADUSWWP 08:20
PROVIDERS: ATTEND Internal Medicine
DX: N95.0 Postmenopausal bleeding (principal); N85.8 Other specified noninflammatory disorders of uterus; R19.09 Other intra-abdominal and pelvic swelling, mass and lump
CPT/HCPCS: 76830; 76856

== ENCOUNTER → 2023-04-13 | Outpatient (CLI) | payer MEDICARE ==
--- NOTE | 2023-04-16 11:40 | MR ---
EXAMINATION TYPE: MR pelvis wo/w con DATE OF EXAM: 04/13/2023 9:54 PM CLINICAL INDICATION:Female, 78 years old with history of R19.00; PHH, Pelvic mass, Abnormal U/S COMPARISON: Ultrasound 04/29/2023 TECHNIQUE: Triplane multisequence imaging was performed of the pelvis. IV Contrast: 7 cc Gadavist FINDINGS: Reproductive: Vagina: Unremarkable. Uterus: The uterus is anteverted in position. Uterus measures 6.3 x 4.2 x 5.1 cm. There is fluid with in the endometrium. With large submucosal fibroid measuring up to 3.6 cm with postcontrast enhancemen t. Ovaries: Complex right pelvic mass which is predominantly cystic with mural solid component component measuring 11.4 x 7.5 x 10.1 cm. There is layering fluid fluid level suggestive of internal hemorrhag e given its high T1 intrinsic signal.. This is in close proximity to the uterus. Some of the images d ue to possibly demonstrated dilated tubular structure. The ovaries are not definitively visualized. Bladder: Unremarkable. Bowel: Unremarkable as visualized. Peritoneum: A small amount of free fluid in the pelvis. Lymph nodes: No evidence of adenopathy. Vasculature: Unremarkable. Musculoskeletal: Bone marrow signal is within normal signal intensity. Abdominal wall/soft tissues: Unremarkable. IMPRESSION: 1. Complex right adnexal mass which may represent an ovarian cystic neoplasm such as a mucinous or s erous cystadenoma and/or cystadenocarcinoma among other etiologies. This may even be a hydrosalpinx w ith debris/hemorrhage given tubular structure and high intrinsic T1 signal with fluid fluid level. Gy necology consultation recommended. 2. No lymphadenopathy identified. 3. Dilated endometrium with large submucosal fibroid measuring up to 3.6 cm. 4. Nonvisualization the ovaries which may represent
== END | disposition home or self-care (01) ==
LOC: RADMRIMAIN 21:15
PROVIDERS: ATTEND Internal Medicine
DX: R19.09 Other intra-abdominal and pelvic swelling, mass and lump (principal); D25.0 Submucous leiomyoma of uterus; N70.11 Chronic salpingitis
CPT/HCPCS: 72197; A9585

== ENCOUNTER → 2023-05-03 | Outpatient (CLI) | payer MEDICARE ==
--- NOTE | 2023-05-04 07:42 | MM ---
Reason for Exam: Screening (asymptomatic). Last screening mammogram was performed 12 month(s) ago. Patient History: Menarche at age 10. First Full-Term at age 20. Postmenopausal. 02/08/2004, Benign Stereotactic Core Biopsy on the left side. Sister had breast cancer, age 40. Mother had breast cancer, age 50. Risk Values: Minerva 5 year model risk: 7.8%. NCI Lifetime model risk: 11.8%. Prior Study Comparison: 04/01/2020 Bilateral Screening Mammogram, [facility]. 04/13/2021 Bilateral Screening Mammogram, [facility]. 04/18/2022 Bilateral MG 3D screening mammo w/cad, [facility]. Tissue Density: There are scattered fibroglandular densities. Findings: Analyzed By CAD. There is no suspicious group of microcalcifications or new suspicious mass in either breast. Biopsy clip within the left breast. Unchanged right axillary lymph nodes. Benign calcifications bilaterally. Overall Assessment: Benign, BI-RAD 2 Management: Screening Mammogram of both breasts in 1 year. A clinical breast exam by your physician is recommended on an annual basis and results should be correlated with mammographic findings. Note on Minerva scores and lifetime risk: 1. A Minerva score greater than 3% is considered moderate risk. If this is the case, consider specialist referral to assess eligibility for a risk reducing agent. If overall lifetime risk for the development of breast cancer is 20% or higher, the patient may qualify for future screening with alternating mammogram and breast MRI. Electronically signed and approved by: Victorino Kim D.O.
== END | disposition home or self-care (01) ==
LOC: RADMAMWWP 14:45
PROVIDERS: ATTEND Internal Medicine
DX: Z12.31 Encounter for screening mammogram for malignant neoplasm of breast (principal); Z78.0 Asymptomatic menopausal state; Z80.3 Family history of malignant neoplasm of breast
CPT/HCPCS: 77063; 77067

== ENCOUNTER → 2024-01-16 | Outpatient (CLI) | payer MEDICARE ==
--- NOTE | 2024-01-17 22:37 | CT ---
EXAMINATION TYPE: CT shoulder LT wo con DATE OF EXAM: 01/16/2024 COMPARISON: No radiographic correlation available HISTORY: 78-year-old female M25.512, Pain in left shoulder, no trauma. TECHNIQUE: Contiguous axial scanning of the left shoulder without IV contrast. Coronal and sagittal r econstructions performed. 3-D reconstructions generated on a dedicated independent workstation. CT DLP: 350.6 mGycm Automated exposure control for dose reduction was used. FINDINGS: Exam limitations due to extensive streak and beam hardening artifact relating to the patient's revers e total shoulder arthroplasty. The glenosphere component appears to be positioned superiorly and ante riorly at the level of the coracoid process. The anterior margin of the prosthetic ball is in close a pposition to the coracoid process. There is suspected bony remodeling/erosion of the mid to inferior glenoid possibly due to chronic abu tment of the medial margin of the humeral stem component. Some subtle lucency is present along the posterior aspect of the glenosphere component, refer to axia l series 3 image 20. Visualized definite pneumothorax is clear. AC joint is intact. Mild degenerative change here. IMPRESSION: 1. RECOMMEND RADIOGRAPHIC CORRELATION TO ASSESS FOR ADEQUATE POSITIONING OF THE REVERSE SHOULDER ARTH ROPLASTY. THERE IS PROMINENT METAL ARTIFACT LIMITING CT ASSESSMENT. THE glenosphere component appears to be positioned superiorly and anteriorly within the glenoid at the level of the coracoid process. The anterior margin of the ball is in close apposition to the coracoid process. 2. Some linear periprosthetic lucency along the posterior aspect of the glenosphere component. Unable to exclude a subtle nondisplaced periprosthetic fracture. 3. Suspected bony remodeling/erosion of the mid to inferior glenoid possibly due to chronic abutment of the medial margin of the humeral stem component. Again, the glenosphere component appears to be po sitioned high in the glenoid.
== END | disposition home or self-care (01) ==
LOC: RADCTMAIN 12:28
PROVIDERS: ATTEND Orthopaedic Surgery
DX: M25.512 Pain in left shoulder (principal); Z47.1 Aftercare following joint replacement surgery; Z96.612 Presence of left artificial shoulder joint

== ENCOUNTER → 2024-06-20 | Outpatient (CLI) | payer MEDICARE ==
--- NOTE | 2024-06-21 22:08 | MM ---
Reason for Exam: Screening (asymptomatic). Last mammogram was performed 1 year(s) and 2 month(s) ago. Patient History: Menarche at age 10. First Full-Term at age 20. Postmenopausal. 02/08/2004, Benign Stereotactic Core Biopsy on the left side. Sister had breast cancer, age 40. Mother had breast cancer, age 50. Risk Values: Minerva 5 year model risk: 7.7%. NCI Lifetime model risk: 10.8%. Prior Study Comparison: 04/13/2021 Bilateral Screening Mammogram, [facility]. 04/18/2022 Bilateral MG 3D screening mammo w/cad, [facility]. 05/03/2023 Bilateral MG 3D screening mammo w/cad, [facility]. Tissue Density: There are scattered areas of fibroglandular density. Findings: Analyzed By CAD. The pattern is symmetrical. No significant interval change is evident. Nodularities within the right breast. Benign round calcifications are present bilaterally. A core marker is within the left breast. No suspicious groups of microcalcifications, spiculated or lobular masses, architectural distortion or other secondary signs of malignancy are mammographically apparent. Overall Assessment: Benign, BI-RAD 2 Management: Screening Mammogram of both breasts in 1 year. A negative mammogram report should not preclude additional follow up of suspicious palpable abnormalities. Patient should continue monthly self breast exam. A clinical breast exam by your physician is recommended on an annual basis and results should be correlated with mammographic findings. Note on Minerva scores and lifetime risk: 1. A Minerva score greater than 3% is considered moderate risk. If this is the case, consider specialist referral to assess eligibility for a risk reducing agent. 2. If overall lifetime risk for the development of breast cancer is 20% or higher, the patient may qualify for future screening with alternating mammogram and breast MRI. [facility], , 06/21/2024 10:03 PM. Electronically signed and approved by: Jabier Godoy D.O. Radiologis
== END | disposition home or self-care (01) ==
LOC: RADMAMWWP 13:47
PROVIDERS: ATTEND Internal Medicine
DX: Z12.31 Encounter for screening mammogram for malignant neoplasm of breast (principal); R92.323 Mammographic fibroglandular density, bilateral breasts; Z78.0 Asymptomatic menopausal state; Z80.3 Family history of malignant neoplasm of breast
CPT/HCPCS: 77063; 77067